=== PATIENT | female | born 1965 | race Caucasian/White ===

== ENCOUNTER → 2021-03-20 | Outpatient (CLI) | payer OTHER | LOC: KOH-I 13:00 | DX: M25.552 Pain in left hip (principal); M25.551 Pain in right hip; M21.952 Unspecified acquired deformity of left thigh; M21.951 Unspecified acquired deformity of right thigh | CPT/HCPCS: 73721 ==

== ENCOUNTER → 2021-03-25 | Outpatient (CLI) | payer OTHER | LOC: KOH-I 14:30 | DX: M50.222 Other cervical disc displacement at C5-C6 level (principal); M25.511 Pain in right shoulder | CPT/HCPCS: 72141; 73221 ==